=== PATIENT | female | born 1990 | race Hispanic/Latino ===

== ENCOUNTER 2017-11-21 03:54 | Inpatient (IN) | payer MEDICAID, OTHER ==
[~2017-11-21] VITALS: Ht 149.9 cm; Wt 57.6 kg
[2017-11-21] MEDS ORDERED: LACTATED RINGERS 1000ML 1,000 ML IV SCH (04:00)
[2017-11-21] MEDS ORDERED: LACTATED RINGERS 1000ML 1,000 ML IV ONE ×2 (05:16→12:15)
[2017-11-21] MEDS ORDERED: OXYTOCIN 10 USP UNITS/ML ONE ×2 (05:16→12:15)
[2017-11-21] MEDS ORDERED: LACTATED RINGERS 1000ML 1,000 ML IV PRN (05:27)
[2017-11-21] MEDS ORDERED: PROMETHAZINE HCL 25 MG/ML 1ML AMPULE IM ONE (05:30)
[2017-11-21] MEDS: PROMETHAZINE HCL 25 MG/ML 1ML AMPULE IM SCH (05:30)
[2017-11-21] MEDS ORDERED: MEPERIDINE-PF 50 MG/ML SYG IVP ONE ×2 (05:30→09:30)
[2017-11-21] MEDS ORDERED: OXYTOCIN-LR 20 UNITS/1000 ML 1,000 ML IV SCH ×2 (05:30→11:00)
[2017-11-21] MEDS ORDERED: MEPERIDINE-PF 50 MG/ML SYG ONE (05:31)
[2017-11-21 05:48] LABS: HEMATOCRIT 38.8 % (36-48); MEAN CORPUSCULAR HEMOGLOBIN 31.6 pg (27.0-33.0); MEAN CORPUSCULAR HGB CONC 34.2 g/dL (32.0-36.0); MEAN CORPUSCULAR VOLUME 92.6 fL (79-99); PLATELET COUNT (AUTO) 189 K/uL (130-400); RED BLOOD CELL COUNT(AUTO) 4.18 MIL/uL (4.00-5.50); RED CELL DISTRIBUTION WIDTH 12.9 % (11.0-15.5); WHITE BLOOD COUNT (AUTO) 15.1 K/uL (4.8-10.8)
[2017-11-21] MEDS ORDERED: MEPERIDINE-PF 25 MG/ML SYG ONE (08:34)
[2017-11-21] MEDS ORDERED: BENZOCAINE/LANOLIN/ALOE VERA 60 ML AEROSOL TP PRN (11:00)
[2017-11-21] MEDS ORDERED: MEASLES/MUMPS/RUBELLA VACCINE, LIVE 0.5 ML/VIAL SQ PRN (11:00)
[2017-11-21] MEDS ORDERED: DIPH,PERTUSS(ACELL),TET VAC/PF 0.5 ML VIAL IM PRN (11:00)
[2017-11-21] MEDS ORDERED: WITCH HAZEL 1 PAD TP PRN (11:00)
[2017-11-21] MEDS ORDERED: LANOLIN 30GM OINTMENT TP PRN (11:00)
[2017-11-21] MEDS ORDERED: ACETAMINOPHEN 325 MG TAB PO PRN (11:00)
[2017-11-21 15:10] VITALS: BP 131/93
[2017-11-21] MEDS: IBUPROFEN 600 MG TABLET PO PRN (16:30)
[2017-11-21 19:26] VITALS: BP 116/64
[2017-11-21] MEDS: DOCUSATE SODIUM 100 MG CAP PO SCH (20:46)
[2017-11-21 23:46] VITALS: BP 108/59
[2017-11-22 04:04] VITALS: BP 115/51
[2017-11-22] MEDS: PROMETHAZINE HCL 25 MG/ML 1ML AMPULE IM SCH (05:30)
[2017-11-22 05:44] LABS: HEMATOCRIT 32.1 % (36-48); MEAN CORPUSCULAR HEMOGLOBIN 31.3 pg (27.0-33.0); MEAN CORPUSCULAR HGB CONC 33.8 g/dL (32.0-36.0); MEAN CORPUSCULAR VOLUME 92.5 fL (79-99); PLATELET COUNT (AUTO) 168 K/uL (130-400); RED BLOOD CELL COUNT(AUTO) 3.48 MIL/uL (4.00-5.50); RED CELL DISTRIBUTION WIDTH 12.9 % (11.0-15.5); WHITE BLOOD COUNT (AUTO) 14.1 K/uL (4.8-10.8)
[2017-11-22] MEDS: IBUPROFEN 600 MG TABLET PO PRN (05:51)
[2017-11-22 07:25] VITALS: BP 106/55
[2017-11-22 08:23] LABS: HEPATITIS Bs ANTIGEN SCREEN P Negative (Negative)
[2017-11-22] MEDS: DOCUSATE SODIUM 100 MG CAP PO SCH (09:30)
[2017-11-22 11:53] VITALS: BP 117/63
== END 2017-11-22 15:00 | disposition home or self-care (01) | DRG 807 ==
LOC: EDH 03:54 → LDH 03:55 → INTOOBSV 03:55 → OBSVTOIN 03:55 → WSH 15:09
PROVIDERS: ADMIT Obstetrics & Gynecology; ATTEND Obstetrics & Gynecology
PROC: 10E0XZZ Delivery of Products of Conception, External Approach (ICD-10-PCS; principal; 2017-11-21)
PROC: 10907ZC Drainage of Amniotic Fluid, Therapeutic from Products of Conception, Via Natural or Artificial Opening (ICD-10-PCS; 2017-11-21)
DX: O80 Encounter for full-term uncomplicated delivery (principal); Z37.0 Single live birth; Z3A.38 38 weeks gestation of pregnancy
CPT/HCPCS: 36415; 85027; 86156; 86592; 86850; 86870; 86900; 86901; 86922; 87340; A4351; J2175; J2550; J2590; J7120